=== PATIENT | female | born 1955 | race Asian ===

== ENCOUNTER 2019-06-24 13:48 | Emergency (ER) | payer MEDICARE ==
[~2019-06-24] VITALS: Ht 152.4 cm; Wt 56.3 kg
[2019-06-24 13:51] VITALS: BP 141/96
== END 2019-06-24 14:42 | disposition home or self-care (01) ==
LOC: ED 14:27
DX: S91.032A Puncture wound without foreign body, left ankle, initial encounter (principal); S90.02XA Contusion of left ankle, initial encounter; E03.9 Hypothyroidism, unspecified; I10 Essential (primary) hypertension; E78.00 Pure hypercholesterolemia, unspecified; W22.09XA Striking against other stationary object, initial encounter; Y93.89 Activity, other specified; Y92.009 Unspecified place in unspecified non-institutional (private) residence as the place of occurrence of the external cause; Y99.8 Other external cause status
CPT/HCPCS: 99283

== ENCOUNTER 2019-12-01 00:37 | Emergency (ER) | payer MEDICARE ==
[~2019-12-01] VITALS: Ht 152.4 cm; Wt 57.0 kg
--- NOTE | 2019-12-01 00:43 | NUR ---
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
[2019-12-01 01:29] LABS: CULTURE INDICATED? YES; MICROSCOPIC INDICATED
--- NOTE | 2019-12-01 01:37 | NUR ---
Patient presents to ER stating "I think I have a urinary infection." Patient states she has a hx of them and this feels like that. Patient has mild low abd pain and frequent urination with mild burning upon urination. Patient denies fever, N/V. Patient is in NAD. Respirations even and unlabored.
--- NOTE | 2019-12-01 01:46 | NUR ---
Patient discharge instructions given. All questions and concerns addressed. Patient ambulatory with a steady gait. Belongings with patient.
[2019-12-01 01:47] VITALS: BP 165/84
[2019-12-01] MEDS ORDERED: CEFDINIR 300 MG CAPSULE PO ONE (02:00)
== END 2019-12-01 01:48 | disposition home or self-care (01) ==
LOC: ED 01:35
DX: N30.01 Acute cystitis with hematuria (principal); E03.9 Hypothyroidism, unspecified; I10 Essential (primary) hypertension; E78.00 Pure hypercholesterolemia, unspecified
CPT/HCPCS: 81001; 87077; 87086; 87186; 99283